=== PATIENT | male | born 1970 | race Caucasian/White ===

== ENCOUNTER 2018-04-01 16:31 | Emergency (ER) | payer SELFPAY ==
--- NOTE | 2018-04-01 17:35 | RAD REPORT ---
EXAM DESCRIPTION: RAD - Chest Single View - 04/01/2018 5:30 pm CLINICAL HISTORY: RIB PAIN - LEFT Chest pain. COMPARISON: CHEST SINGLE VIEW dated 11/04/2014 FINDINGS: Portable technique limits examination quality. The lungs are grossly clear. The heart is normal in size. No displaced fractures. IMPRESSION: No acute intrathoracic process suspected.
--- NOTE | 2018-04-01 17:36 | RAD REPORT ---
EXAM DESCRIPTION: RAD - Ribs Left - 04/01/2018 5:30 pm CLINICAL HISTORY: PAIN COMPARISON: Chest Single View dated 04/01/2018 FINDINGS: Mild fractures are suspected involving the lateral aspect of the left seventh and ninth ri bs. The bones are somewhat demineralized which degrades assessment.
--- NOTE | 2018-04-01 17:51 | EDPHYS ---
Physician Documentation [facility] Name: Akshat Sexton Age: 47 yrs Sex: Male : 1970 Arrival Date: 04/01/2018 Time: 16:33 Bed 10 Private MD: Mimi Sandoval K ED Physician Mahenrda Christopher HPI: 04/01 17:49 This 47 yrs old Male presents to ER via Ambulatory with complaints of Rib kb Pain. 17:49 The patient or guardian reports chest pain that is located primarily in the left kb lateral anterior chest. Onset: The symptoms/episode began/occurred 5 day(s) ago. The pain does not radiate. Associated signs and symptoms: The patient has no apparent associated signs or symptoms. The chest pain is described as sharp. Duration: The patient or guardian reports a single episode, that is still ongoing. Modifying factors: The symptoms are alleviated by nothing. the symptoms are aggravated by activity, cough, deep breath, movement, palpation of area. Severity of pain: At its worst the pain was moderate in the emergency department the pain is unchanged. The patient has not experienced similar symptoms in the past. The patient has not recently seen a physician. Pt was resting on his lower ribs reaching over something and it gave way. States he fell a couple of inches and hit his left lower ribs on what he was originally leaning on. Reports pain has been constant since then. Historical: - Allergies: 16:50 PENICILLINS; la1 - PMHx: 16:50 None; la1 - Immunization history:: Adult Immunizations up to date. - Social history:: Smoking status: Patient/guardian denies using tobacco. - Ebola Screening: : No symptoms or risks identified at this time. ROS: 17:48 Constitutional: Negative for fever, chills, and weight loss, Respiratory: Negative for kb shortness of breath, cough, wheezing, and pleuritic chest pain, Abdomen/GI: Negative for abdominal pain, nausea, vomiting, diarrhea, and constipation, Back: Negative for injury and pain, MS/Extremity: Negative for injury and deformity, Skin: Negative for injury, rash, and discoloration, Neuro: Negative for headache, weakness, numbness, tingling, and seizure. 17:48 Cardiovascular: Positive for chest pain, with cough, with movement, of the left lateral anterior chest. Exam: 17:48 Constitutional: This is a well developed, well nourished patient who is awake, alert, kb and in no acute distress. Head/Face: Normocephalic, atraumatic. Cardiovascular: Regular rate and rhythm with a normal S1 and S2. No gallops, murmurs, or rubs. Normal PMI, no JVD. No pulse deficits. Respiratory: Lungs have equal breath sounds bilaterally, clear to auscultation and percussion. No rales, rhonchi or wheezes noted. No increased work of breathing, no retractions or nasal flaring. Abdomen/GI: Soft, non-tender, with normal bowel sounds. No distension or tympany. No guarding or rebound. No evidence of tenderness throughout. Back: No spinal tenderness. No costovertebral tenderness. Full range of motion. Skin: Warm, dry with normal turgor. Normal color with no rashes, no lesions, and no evidence of cellulitis. MS/ Extremity: Pulses equal, no cyanosis. Neurovascular intact. Full, normal range of motion. Neuro: Awake and alert, GCS 15, oriented to person, place, time, and situation. Cranial nerves II-XII grossly intact. Motor strength 5/5 in all extremities. Sensory grossly intact. Cerebellar exam normal. Normal gait. 17:48 Chest/axilla: Inspection: normal, Palpation: tenderness, that is moderate, of the left lateral anterior chest, that totally reproduces the patient's complaints. Vital Signs: 16:50 BP 136 / 96; Pulse 86; Resp 16; Temp 97.2; Pulse Ox 98% on R/A; Weight 127.01 kg; la1 Height 6 ft. 0 in. (182.88 cm); 16:50 Body Mass Index 37.97 (127.01 kg, 182.88 cm) la1 MDM: 17:02 Patient medically screened. kb 17:21 Data reviewed: vital signs, nurses notes. Data interpreted: Pulse oximetry: on room air kb is 98 %. Interpretation: normal. 17:48 Counseling: I had a detailed discussion with the patient and/or guardian regarding: the kb historical points, exam findings, and any diagnostic results supporting the discharge/admit diagnosis, radiology results, the need for outpatient follow up, a family practitioner, to return to the emergency department if symptoms worsen or persist or if there are any questions or concerns that arise at home. 04/01 16:55 Order name: Chest Single View XRAY; Complete Time: 17:37 la1 04/01 16:55 Order name: Ribs Left XRAY; Complete Time: 17:37 la1 Administered Medications: 17:48 Drug: [place] 10 mg-325 mg 1 tabs Route: PO; iw 18:04 Follow up: Response: No adverse reaction; Pain is decreased la1 Disposition: 18:44 Co-signature as Attending Physician, Dominic Varela MD available for consultation at ps1 all times. Disposition: 04/01/18 17:51 Discharged to Home. Impression: Multiple fractures of ribs, left side. - Condition is Stable. - Discharge Instructions: Rib Fracture, [id number]. - Prescriptions for Tylenol- Codeine #3 300-30 mg Oral Tablet - take 1 tablet by ORAL route every 6 hours As needed; 15 tablet. - Medication Reconciliation Form, Thank You Letter, Antibiotic Education, Prescription Opioid Use, Work release form form. - Follow up: Emergency Department; When: As needed; Reason: Worsening of condition. Follow up: Private Physician; When: 2 - 3 days; Reason: Recheck today's complaints, Continuance of care, Re-evaluation by your physician. Signatures: Dispatcher [employer] Paulina Beltre, JAMAL CENSUS CLERK-Rachel Kraft, RN RN Balbir Hansen RN RN la Dominic Varela MD MD ps1 Corrections: (The following items were deleted from the chart) 18:04 17:51 04/01/2018 17:51 Discharged to Home. Impression: Multiple fractures of ribs, left la1 side. Condition is Stable. Forms are Medication Reconciliation Form, Thank You Letter, Antibiotic Education, Prescription Opioid Use. Follow up: Emergency Department; When: As needed; Reason: Worsening of condition. Follow up: Private Physician; When: 2 - 3 days; Reason: Recheck today's complaints, Continuance of care, Re-evaluation by your physician. kb
--- NOTE | 2018-04-01 17:51 | ER ---
Nurse's Notes [facility] Name: Akshat Sexton Age: 47 yrs Sex: Male : 1970 Arrival Date: 04/01/2018 Time: 16:33 Bed 10 Private MD: Mimi Sandoval K Diagnosis: Multiple fractures of ribs, left side Presentation: 04/01 16:49 Presenting complaint: Patient states: 2 days ago I was leaning over and fell against la1 something on my left side and I am having a lot of pain in my ribs on that side. Transition of care: patient was not received from another setting of care. Onset of symptoms was April 01, 2018. Risk Assessment: Do you want to hurt yourself or someone else? Patient reports no desire to harm self or others. Initial Sepsis Screen: Does the patient meet any 2 criteria? No. Patient's initial sepsis screen is negative. Does the patient have a suspected source of infection? No. Patient's initial sepsis screen is negative. Care prior to arrival: None. 16:49 Method Of Arrival: Ambulatory la1 16:49 Acuity: LEA 4 la1 Historical: - Allergies: 16:50 PENICILLINS; la1 - PMHx: 16:50 None; la1 - Immunization history:: Adult Immunizations up to date. - Social history:: Smoking status: Patient/guardian denies using tobacco. - Ebola Screening: : No symptoms or risks identified at this time. Screenin:52 Abuse screen: Denies threats or abuse. Nutritional screening: No deficits noted. la1 Tuberculosis screening: No symptoms or risk factors identified. Fall Risk None identified. Assessment: 16:51 General: Appears in no apparent distress. Behavior is calm, cooperative. Pain: la1 Complains of pain in left lateral anterior chest. Neuro: Level of Consciousness is awake, alert, obeys commands, Oriented to person, place, time, situation. Cardiovascular: Capillary refill < 3 seconds Patient's skin is warm and dry. Respiratory: Airway is patent Respiratory effort is even, unlabored, Respiratory pattern is regular, symmetrical, Breath sounds are clear bilaterally. GI: No signs and/or symptoms were reported involving the gastrointestinal system. : No signs and/or symptoms were reported regarding the genitourinary system. Vital Signs: 16:50 BP 136 / 96; Pulse 86; Resp 16; Temp 97.2; Pulse Ox 98% on R/A; Weight 127.01 kg; la1 Height 6 ft. 0 in. (182.88 cm); 16:50 Body Mass Index 37.97 (127.01 kg, 182.88 cm) la1 ED Course: 16:33 Patient arrived in ED. as 16:34 Mimi Sandoval MD is Private Physician. as 16:49 Triage completed. la1 16:50 Arm band placed on right wrist. la1 16:51 Balbir Hansen, RN is Primary Nurse. la1 16:52 Call light in reach. la1 16:52 No provider procedures requiring assistance completed. Patient did not have IV access la1 during this emergency room visit. 16:53 Paulina Rodríguez FNP-C [facility]. la1 16:54 Mahendra Christopher MD is Attending Physician. la1 17:30 Chest Single View XRAY In Process Unspecified. EDMS 17:31 Ribs Left XRAY In Process Unspecified. EDMS Administered Medications: 17:48 Drug: [place] 10 mg-325 mg 1 tabs Route: PO; iw 18:04 Follow up: Response: No adverse reaction; Pain is decreased la1 Outcome: 17:51 Discharge ordered by MD. kb 18:04 Discharged to home ambulatory. la1 18:04 Condition: stable 18:04 Discharge instructions given to patient, Instructed on discharge instructions, follow up and referral plans. medication usage, Demonstrated understanding of instructions, follow-up care, medications, Prescriptions given X 1. 18:04 Patient left the ED. la1 Signatures: Dispatcher [employer] EDMS Paulina Rodríguez FNP-C FNP-Ckb Martinez, Amelia as Rachel Madison RN RN iw Balbir Hansen RN RN la1
[2018-04-01] MEDS ORDERED: HYDROCODONE/APAP 10/325 TAB ONE (17:54)
[2018-04-01 18:08] VITALS: BP 136/96; TEMP 97.2; O2SAT 98
== END 2018-04-01 18:04 | disposition home or self-care (01) ==
LOC: ER 16:31
DX: S22.42XA Multiple fractures of ribs, left side, initial encounter for closed fracture (principal); W19.XXXA Unspecified fall, initial encounter; Y93.89 Activity, other specified; Y92.9 Unspecified place or not applicable; Z88.0 Allergy status to penicillin
CPT/HCPCS: 71045; 99283

== ENCOUNTER 2019-04-28 16:48 | Emergency (ER) | payer SELFPAY ==
[2019-04-28] MEDS ORDERED: HYDROCODONE/APAP 7.5/325 MG TAB ONE (18:00)
--- NOTE | 2019-04-28 18:46 | RAD REPORT ---
EXAM DESCRIPTION: CT - Thorax Wo Con - 04/28/2019 6:23 pm CLINICAL HISTORY: Persistent chest and back pain following a fall 4 days earlier COMPARISON: None. TECHNIQUE: Axial 5 mm thick images of the chest were obtained without IV contrast. All CT scans are performed using dose optimization technique as appropriate and may include automated exposure control or mA/KV adjustment according to patient size. FINDINGS: No pulmonary contusion or acute lung parenchymal process. No pleural thickening or pleural effusion. No pneumothorax. No abnormal mediastinal or hilar masses or lymphadenopathy seen. No gross aortic or pulmonary artery finding suspected. Assessment is limited in the absence of IV contrast. No pericardial thickening or effusion. No chest wall mass or abnormal axillary lymphadenopathy. No thoracic spine compression fractures seen. There are no displaced rib fractures present and no con vincing evidence for a nondisplaced rib fracture. Bilateral gynecomastia is present. No significant c ontusion or injury to the subcutaneous fatty tissues. IMPRESSION: Noncontrast CT chest images show no significant or suspicious finding.
--- NOTE | 2019-04-28 18:52 | RAD REPORT ---
EXAM DESCRIPTION: CT - Abdomen Wo Contrast - 04/28/2019 6:24 pm CLINICAL HISTORY: pain, fall COMPARISON: No comparisons TECHNIQUE: Axial [address] imaging of the abdomen was performed. No IV contrast was adm inistered. Oral contrast was administered. All CT scans are performed using dose optimization technique as appropriate and may include automated exposure control or mA/KV adjustment according to patient size. FINDINGS: No suspicious findings in the lung bases. Fatty infiltration of the liver is present without a focal liver lesion abnormality. Spleen and pancr eas are unremarkable. Gallbladder is contracted limiting assessment. No biliary tree dilatation. No hydronephrosis or suspicious renal mass. Isodense masses and pyelonephritis are not excluded on a non IV contrast study. No adrenal abnormality. No dilated bowel loops or bowel wall thickening. No free air, free fluid or inflammatory stranding. N o hernia, mass or bulky lymphadenopathy. Patient has a large amount of stool filling but not grossly dilating the right-side colon and transverse colon. No compression fractures of the lumbar spine. L5-S1 disc space narrowing is present. There is some s ubtle cortical irregularity of the L1 right transverse process. No adjacent hematoma or edema. Subtle cortical buckling seen in the right ninth rib costochondral junction. This is the lateral aspect of the upper abdomen. Overlying musculature appear slightly thickened or edematous. Correlation is neede d to determine if the patient had trauma to the lateral upper right abdomen. Exam sensitivity is decreased when no IV contrast is administered. IMPRESSION: Fatty infiltration of the liver. No injury to the solid abdominal visceral or bowel. No fluid, stranding or other peritoneal or retroperitoneal acute process. Subtle buckling of the right ninth rib at the costochondral junction. This is the lateral aspect of t he upper abdomen and there is some thickening or edema in the overlying musculature. Correlation is n eeded with pain symptoms and history of trauma in this region. The underlying liver is without acute finding. Subtle cortical irregularity of the L1 right transverse process. Nondisplaced fracture is possible if the patient has localizing symptoms.
--- NOTE | 2019-04-28 19:07 | ER ---
Nurse's Notes [facility] Name: Akshat Sexton Age: 48 yrs Sex: Male : 1970 Arrival Date: 04/28/2019 Time: 16:52 Bed 5 Private MD: Avinash Bright E Diagnosis: Fracture of one rib, right side;Age indeterminate stable L1 fracture Presentation: 04/28 17:02 Presenting complaint: Right mid back pain after mechanical fall from standing 4 days hb ago. Pt was walking dog with leash around wrist, dog took off and jerked him forward, landed prone, now c/o right mid back pain /. Transition of care: patient was not received from another setting of care. Onset of symptoms was April 24, 2019. Risk Assessment: Do you want to hurt yourself or someone else? Patient reports no desire to harm self or others. Initial Sepsis Screen: Does the patient meet any 2 criteria? No. Patient's initial sepsis screen is negative. Does the patient have a suspected source of infection? No. Patient's initial sepsis screen is negative. Care prior to arrival: None. 17:02 Method Of Arrival: Ambulatory hb 17:02 Acuity: LEA 4 hb Historical: - Allergies: 17:06 PENICILLINS; hb - Home Meds: 17:06 None [Active]; hb - PMHx: 17:06 None; hb - PSHx: 17:06 None; hb - Immunization history:: Adult Immunizations up to date. - Social history:: Smoking status: Patient/guardian denies using tobacco. - Ebola Screening: : No symptoms or risks identified at this time. Screenin:25 Abuse screen: Denies threats or abuse. Denies injuries from another. Nutritional sg screening: No deficits noted. Tuberculosis screening: No symptoms or risk factors identified. Never had TB. Fall Risk None identified. Assessment: 17:20 General: Appears in no apparent distress. well groomed, well developed, well nourished, sg Behavior is calm, cooperative, appropriate for age. Pain: Complains of pain in right subscapular area and abdomen Quality of pain is described as aching, tender. Neuro: Level of Consciousness is awake, alert, obeys commands, Oriented to person, place, time, Moves all extremities. Speech is normal, Facial symmetry appears normal. Cardiovascular: Capillary refill is brisk in bilateral fingers Patient's skin is warm and dry. Chest pain is denied. Respiratory: Airway is patent Respiratory effort is even, unlabored, Respiratory pattern is regular, symmetrical. GI: Bowel sounds present X 4 quads. Abd is soft and non tender X 4 quads. : No signs and/or symptoms were reported regarding the genitourinary system. EENT: No signs and/or symptoms were reported regarding the EENT system. Derm: Skin is pink, warm \T\ dry. Musculoskeletal: Circulation, motion, and sensation intact. Range of motion: intact in all extremities. 18:20 Reassessment: Patient appears in no apparent distress at this time. Patient and/or sg family updated on plan of care and expected duration. Pain level reassessed. Patient is alert, oriented x 3, equal unlabored respirations, skin warm/dry/pink. awaiting new orders at this time, will continue to monitor. 19:10 General: Appears in no apparent distress. comfortable, Behavior is calm, cooperative, rr5 appropriate for age. Pain: Complains of pain in back and abdomen Pain does not radiate. Pain currently is 0 out of 10 on a pain scale. Quality of pain is described as aching, tender, Pain began gradually, Is intermittent. Neuro: Level of Consciousness is awake, alert, obeys commands, Oriented to person, place, time, situation. Cardiovascular: Capillary refill < 3 seconds Patient's skin is warm and dry. Respiratory: Airway is patent Respiratory effort is even, unlabored, Respiratory pattern is regular, symmetrical. 19:10 GI: Reports upper abdominal pain, right side. rr5 19:10 Derm: Skin is intact, Skin temperature is warm. Musculoskeletal: Circulation, motion, rr5 and sensation intact. 19:20 Reassessment: RT came and educated the the patient about the use of incentive rr5 spirometry. 19:25 Reassessment: Patient appears in no apparent distress at this time. Patient is alert, rr5 oriented x 3, equal unlabored respirations, skin warm/dry/pink. discharge instruction given and explained without complaints made. verbalized understanding. Vital Signs: 17:06 BP 149 / 79; Pulse 83; Resp 16; Temp 98.4; Pulse Ox 100% on R/A; Weight 127.01 kg; hb Height 5 ft. 11 in. (180.34 cm); Pain 4/10; 19:10 BP 144 / 95; Pulse 80; Resp 19; Temp 98.5; Pulse Ox 99% ; rr5 17:06 Body Mass Index 39.05 (127.01 kg, 180.34 cm) ED Course: 16:52 Patient arrived in ED. mr 16:52 Avinash Bright MD is Private Physician. mr 17:05 Triage completed. hb 17:06 Arm band placed on. hb 17:20 Patient has correct armband on for positive identification. Bed in low position. Call sg light in reach. Side rails up X2. Pulse ox on. NIBP on. Warm blanket given. Head of bed elevated. 17:25 No provider procedures requiring assistance completed. sg 17:37 Dominic Varela MD is Attending Physician. ps1 18:02 Matthew Webb, RN is Primary Nurse. sg 18:[address] [facility] 18:24 CT Chest Wo Con In Process Unspecified. EDMS 18:24 CT completed. Patient tolerated procedure well. Patient moved back from CT. in 18:24 Abdomen Wo Contrast In Process Unspecified. EDMS 19:05 Avinash Bright MD is Referral Physician. ps1 19:29 Patient did not have IV access during this emergency room visit. rr5 Administered Medications: 18:00 Drug: [place] (7.5 mg-325 mg) 1 tabs Route: PO; sg 19:30 Follow up: Response: No adverse reaction rr5 19:30 Follow up: Response: RASS: Alert and Calm (0) rr5 Outcome: 19:07 Discharge ordered by MD. ps1 19:29 Discharged to home ambulatory, with family. rr5 19:29 Condition: stable 19:29 Discharge instructions given to patient, Instructed on discharge instructions, follow up and referral plans. medication usage, Demonstrated understanding of instructions, follow-up care, medications, incentive spirometry Prescriptions given X 2. 19:31 Patient left the ED. rr5 Signatures: Dispatcher [employer] EDMS Matthew Webb, QUINCY MATHEW Tasha Pierce Olinda Guerrero RN RN Joni Bhat Phillip, MD MD [facility] Jazmyn Stone kw1 Akira Cardenas RN RN rr5 Corrections: (The following items were deleted from the chart) 19:29 19:10 GI: Reports lower abdominal pain, upper abdominal pain, rr5 rr5
--- NOTE | 2019-04-28 19:08 | EDPHYS ---
Physician Documentation [facility] Name: Akshat Sexton Age: 48 yrs Sex: Male : 1970 Arrival Date: 04/28/2019 Time: 16:52 Bed 5 Private MD: Avinash Bright E ED Physician Dominic Varela HPI: 04/28 18:58 This 48 yrs old Male presents to ER via Ambulatory with complaints of ps1 Abdominal Pain, Back Pain. 18:58 patient reportedly fell a couple of days ago while walking dog and has right rib pain. ps1 NO LOC. Reports that he may have fallen and broke ribs previously. Has pain at 9 th rib on right. Pain worse with deep inspiration. . Historical: - Allergies: 17:06 PENICILLINS; hb - Home Meds: 17:06 None [Active]; hb - PMHx: 17:06 None; hb - PSHx: 17:06 None; hb - Immunization history:: Adult Immunizations up to date. - Social history:: Smoking status: Patient/guardian denies using tobacco. - Ebola Screening: : No symptoms or risks identified at this time. ROS: 18:58 Constitutional: Negative for fever, chills, and weight loss, Eyes: Negative for injury, ps1 pain, redness, and discharge, Cardiovascular: Negative for chest pain, palpitations, and edema, Abdomen/GI: Negative for abdominal pain, nausea, vomiting, diarrhea, and constipation, Back: Negative for injury and pain, MS/Extremity: Negative for injury and deformity, Skin: Negative for injury, rash, and discoloration, Neuro: Negative for headache, weakness, numbness, tingling, and seizure. 18:58 Respiratory: Positive for right rib pain and pleurisy. Exam: 18:58 Constitutional: This is a well developed, well nourished patient who is awake, alert, ps1 and in no acute distress. Head/Face: Normocephalic, atraumatic. Cardiovascular: Regular rate and rhythm. No gallops, murmurs, or rubs. Normal PMI, no JVD. No pulse deficits. Respiratory: Lungs have equal breath sounds bilaterally, clear to auscultation and percussion. No rales, rhonchi or wheezes noted. No increased work of breathing, no retractions or nasal flaring. Abdomen/GI: Soft, non-tender, with normal bowel sounds. No distension or tympany. No guarding or rebound. No evidence of tenderness throughout. Skin: Warm, dry with normal turgor. Normal color with no rashes, no lesions, and no evidence of cellulitis. MS/ Extremity: Pulses equal, no cyanosis. Neurovascular intact. Full, normal range of motion. Neuro: Awake and alert, GCS 15, oriented to person, place, time, and situation. Cranial nerves II-XII grossly intact. Sensory grossly intact. 18:58 Chest/axilla: Inspection: normal, Palpation: tenderness, that is moderate, of the right lateral anterior chest, that totally reproduces the patient's complaints. Vital Signs: 17:06 BP 149 / 79; Pulse 83; Resp 16; Temp 98.4; Pulse Ox 100% on R/A; Weight 127.01 kg; hb Height 5 ft. 11 in. (180.34 cm); Pain 4/10; 19:10 BP 144 / 95; Pulse 80; Resp 19; Temp 98.5; Pulse Ox 99% ; rr5 17:06 Body Mass Index 39.05 (127.01 kg, 180.34 cm) hb MDM: 17:52 Patient medically screened. ps1 18:58 Data reviewed: vital signs, nurses notes, radiologic studies, and as a result, I will ps1 discharge patient. 04/28 17:53 Order name: CT Chest Wo Con; Complete Time: 18:49 ps1 04/28 18:19 Order name: Abdomen Wo Contrast; Complete Time: 18:56 EDMS 04/28 18:58 Order name: INCENTIVE SPIROMETRY ps1 Administered Medications: 18:00 Drug: Coward (7.5 mg-325 mg) 1 tabs Route: PO; sg 19:30 Follow up: Response: No adverse reaction rr5 19:30 Follow up: Response: RASS: Alert and Calm (0) rr5 Disposition: 04/28/19 19:07 Discharged to Home. Impression: Fracture of one rib, right side, Age indeterminate stable L1 fracture. - Condition is Stable. - Discharge Instructions: Rib Fracture, Vertebral Fracture, [id number]. - Prescriptions for Tylenol- Codeine #3 300-30 mg Oral Tablet - take 2 tablet by ORAL route every 6 hours As needed; 30 tablet. Zofran 4 mg Oral Tablet - take 1 tablet by ORAL route every 12 hours As needed; 20 tablet. - Medication Reconciliation Form, Thank You Letter, Antibiotic Education, Prescription Opioid Use form. - Follow up: Avinash Bright MD; When: As needed; Reason: Further diagnostic work-up, Recheck today's complaints, Continuance of care, Re-evaluation by your physician. Follow up: Emergency Department; When: As needed; Reason: Trouble breathing, Worsening of condition. - Problem is new. - Symptoms are unchanged. Signatures: Dispatcher [employer] EDMS Matthew Webb RN RN sg Olinda Guerrero RN RN Dominic Varela MD MD ps1 Akira Cardenas RN RN rr5 Corrections: (The following items were deleted from the chart) 19:31 19:07 04/28/2019 19:07 Discharged to Home. Impression: Fracture of one rib, right side; rr5 Age indeterminate stable L1 fracture. Condition is Stable. Forms are Medication Reconciliation Form, Thank You Letter, Antibiotic Education, Prescription Opioid Use. Follow up: Avinash Bright; When: As needed; Reason: Further diagnostic work-up, Recheck today's complaints, Continuance of care, Re-evaluation by your physician. Follow up: Emergency Department; When: As needed; Reason: Trouble breathing, Worsening of condition. Problem is new. Symptoms are unchanged. ps1
[2019-04-28 19:37] VITALS: BP 144/95; TEMP 98.5; O2SAT 99
== END 2019-04-28 19:31 | disposition home or self-care (01) ==
LOC: ER 16:48
DX: S22.31XA Fracture of one rib, right side, initial encounter for closed fracture (principal); S32.018A Other fracture of first lumbar vertebra, initial encounter for closed fracture; W18.39XA Other fall on same level, initial encounter; Y93.89 Activity, other specified; Y92.89 Other specified places as the place of occurrence of the external cause; Z88.0 Allergy status to penicillin
CPT/HCPCS: 71250; 74150; 99284

== ENCOUNTER 2019-05-05 20:15 | Emergency (ER) | payer SELFPAY ==
[2019-05-05] MEDS ORDERED: LACTULOSE 20 GM/30 ML UCUP ONE (21:01)
[2019-05-05] MEDS ORDERED: BISACODYL 10 MG RECTAL SUPP ONE (21:01)
[2019-05-05] MEDS ORDERED: NA CHLORIDE 0.9% 1,000 ML ONE (21:01)
[2019-05-05 21:14] LABS: Absolute Lymphocytes (CBC) 1.9 K/uL (0.7-4.9); Basophils % 0.6 % (0-1.3); Hematocrit 42.3 % (39.6-49.0); Lymphocytes % 28.8 % (15.3-44.8); MPV 7.9 fL (7.6-11.3); RBC Red Blood Cell Count 4.53 M/uL (4.33-5.43)
[2019-05-05 21:46] LABS: Albumin 3.9 g/dL (3.4-5.0); Bilirubin Direct 0.1 mg/dL (0-0.2); Bilirubin Total 0.4 mg/dL (0.2-1.0); Protein, Total 7.7 g/dL (6.4-8.2)
[2019-05-06] MEDS ORDERED: MAGNESIUM CITRATE 300 ML BOT ONE (01:15)
--- NOTE | 2019-05-06 01:43 | EDPHYS ---
Physician Documentation [facility] Name: Akshat Sexton Age: 48 yrs Sex: Male : 1970 Arrival Date: 05/05/2019 Time: 20:17 Bed 17 Private MD: ED Physician Aaron Casiano HPI: 05/05 21:06 This 48 yrs old Male presents to ER via Ambulatory with complaints of gabbi Constipation. 21:06 The patient presents with abdominal pain abdominal distention in the upper abdomen, in gabbi the lower abdomen. Onset: The symptoms/episode began/occurred 5 day(s) ago. The symptoms do not radiate. Associated signs and symptoms: none. The symptoms are described as crampy. Modifying factors: The symptoms are alleviated by nothing, the symptoms are aggravated by nothing. Severity of pain: At its worst the pain was mild in the emergency department the pain is unchanged. The patient has experienced similar episodes in the past, a few times. Historical: - Allergies: 20:32 PENICILLINS; lp1 - Home Meds: 20:32 Methadone Oral [Active]; lp1 - PMHx: 20:32 None; lp1 - PSHx: 20:32 Hernia repair; lp1 - Immunization history:: Adult Immunizations up to date. - Social history:: Smoking status: Patient/guardian denies using tobacco. - Ebola Screening: : No symptoms or risks identified at this time. - Family history:: not pertinent. ROS: 21:06 Constitutional: Negative for fever, chills, and weight loss, Eyes: Negative for injury, gabbi pain, redness, and discharge, ENT: Negative for injury, pain, and discharge, Neck: Negative for injury, pain, and swelling, Cardiovascular: Negative for chest pain, palpitations, and edema, Respiratory: Negative for shortness of breath, cough, wheezing, and pleuritic chest pain, Back: Negative for injury and pain, : Negative for injury, bleeding, discharge, and swelling, MS/Extremity: Negative for injury and deformity, Skin: Negative for injury, rash, and discoloration, Neuro: Negative for headache, weakness, numbness, tingling, and seizure, Psych: Negative for depression, anxiety, suicide ideation, homicidal ideation, and hallucinations, Allergy/Immunology: Negative for hives, rash, and allergies, Endocrine: Negative for neck swelling, polydipsia, polyuria, polyphagia, and marked weight changes, Hematologic/Lymphatic: Negative for swollen nodes, abnormal bleeding, and unusual bruising. 21:06 Abdomen/GI: Positive for abdominal pain, constipation, abdominal cramps. Exam: 21:06 Constitutional: This is a well developed, well nourished patient who is awake, alert, gabbi and in no acute distress. Head/Face: Normocephalic, atraumatic. Eyes: Pupils equal round and reactive to light, extra-ocular motions intact. Lids and lashes normal. Conjunctiva and sclera are non-icteric and not injected. Cornea within normal limits. Periorbital areas with no swelling, redness, or edema. ENT: Nares patent. No nasal discharge, no septal abnormalities noted. Tympanic membranes are normal and external auditory canals are clear. Oropharynx with no redness, swelling, or masses, exudates, or evidence of obstruction, uvula midline. Mucous membranes moist. Neck: Trachea midline, no thyromegaly or masses palpated, and no cervical lymphadenopathy. Supple, full range of motion without nuchal rigidity, or vertebral point tenderness. No Meningismus. Chest/axilla: Normal chest wall appearance and motion. Nontender with no deformity. No lesions are appreciated. Cardiovascular: Regular rate and rhythm with a normal S1 and S2. No gallops, murmurs, or rubs. Normal PMI, no JVD. No pulse deficits. Respiratory: Lungs have equal breath sounds bilaterally, clear to auscultation and percussion. No rales, rhonchi or wheezes noted. No increased work of breathing, no retractions or nasal flaring. Back: No spinal tenderness. No costovertebral tenderness. Full range of motion. Male : Normal genitalia with no discharge or lesions. Skin: Warm, dry with normal turgor. Normal color with no rashes, no lesions, and no evidence of cellulitis. MS/ Extremity: Pulses equal, no cyanosis. Neurovascular intact. Full, normal range of motion. Neuro: Awake and alert, GCS 15, oriented to person, place, time, and situation. Cranial nerves II-XII grossly intact. Motor strength 5/5 in all extremities. Sensory grossly intact. Cerebellar exam normal. Normal gait. Psych: Awake, alert, with orientation to person, place and time. Behavior, mood, and affect are within normal limits. 21:06 Abdomen/GI: Inspection: abdomen appears normal, Bowel sounds: normal, Palpation: mild abdominal tenderness, Liver: is firm, Hernia: not appreciated. Vital Signs: 20:30 BP 141 / 88; Pulse 79; Resp 18; Temp 97.6(O); Pulse Ox 97% on R/A; Weight 127.01 kg; lp1 Height 5 ft. 11 in. (180.34 cm); Pain 0/10; 21:24 BP 147 / 84; Pulse 78; Resp 18; Pulse Ox 99% on R/A; wh 23:30 BP 147 / 89; Pulse 75; Resp 18; Pulse Ox 96% ; 05/06 01:00 BP 159 / 75; Pulse 72; Resp 18; Pulse Ox 98% ; 01:48 BP 128 / 65; Pulse 68; Resp 18; Pulse Ox 93% on R/A; 05/05 20:30 Body Mass Index 39.05 (127.01 kg, 180.34 cm) lp1 MDM: 05/05 20:35 Patient medically screened. [facility] 21:09 Data reviewed: vital signs, nurses notes, lab test result(s), radiologic studies, CT gabbi scan. 05/06 01:40 ED course: Patient had good bowel movement in ER. Feeling much better. pkl 01:42 Patient medically screened. pkl 05/05 20:37 Order name: Basic Metabolic Panel; Complete Time: 22:03 [facility] 05/05 20:37 Order name: CBC with Diff; Complete Time: 21:39 [facility] 05/05 20:37 Order name: Creatinine for Radiology; Complete Time: 22:03 [facility] 05/05 20:37 Order name: Hepatic Function; Complete Time: 22:03 [facility] 05/05 20:37 Order name: Lipase; Complete Time: 22:03 [facility] 05/05 20:37 Order name: IV Saline Lock; Complete Time: 21:02 [facility] 05/05 20:37 Order name: Labs collected and sent; Complete Time: 21:02 [facility] 05/05 20:37 Order name: CT Abd/Pelvis - PO and IV Contrast [facility] 05/05 22:04 Order name: PO challenge; Complete Time: 22:09 snw Administered Medications: 05/05 21:10 Drug: Lactulose 30 grams Volume: 45 ml; Route: PO; 05/06 01:43 Follow up: Response: No adverse reaction 05/05 21:10 Drug: Dulcolax Suppository 10 mg Route: MD; 05/06 01:43 Follow up: Response: No adverse reaction 05/05 21:11 Drug: NS 0.9% 1000 ml Route: IV; Rate: 1 bolus; Site: right antecubital; 05/06 01:42 Follow up: Response: No adverse reaction; IV Status: Completed infusion 01:18 Drug: Magnesium Citrate Liquid 300 ml Route: PO; 01:43 Follow up: Response: No adverse reaction; Marked relief of symptoms Disposition: 05/06/19 01:42 Discharged to Home. Impression: Constipation, Abdominal tenderness, Obesity, unspecified. - Condition is Stable. - Discharge Instructions: Abdominal Pain, Adult, Constipation, Adult, Obesity, Adult, Constipation, Adult, [id number], Abdominal Pain, Adult, [id number]. - Prescriptions for Lactulose 10 gram/15 mL Oral Solution - take 30 milliliter by ORAL route once daily; 300 milliliter. Dulcolax 10 mg Rectal Suppository - insert 1 suppository by RECTAL route every 12 hours As needed; 10 suppository. - Medication Reconciliation Form, Thank You Letter, Antibiotic Education, Prescription Opioid Use form. - Follow up: Private Physician; When: 2 - 3 days; Reason: Recheck today's complaints, Continuance of care, Re-evaluation by your physician. Follow up: Samira Mirza; When: 2 - 3 days; Reason: Recheck today's complaints, Re-evaluation by your physician. - Problem is new. - Symptoms have improved. Signatures: Dispatcher [employer] EDDion Aguirre MD MD cha Lam, Pin, MD MD pkl Therrien, Shelly, EARLY CHILDHOOD EDUCATION INSTRUCTOR-C EARLY CHILDHOOD EDUCATION INSTRUCTOR-Csnw Bernadine Encarnacion RN RN lp1 Sonali Cool Corrections: (The following items were deleted from the chart) 01:50 01:42 05/06/2019 01:42 Discharged to Home. Impression: Constipation; Abdominal wh tenderness; Obesity, unspecified. Condition is Stable. Discharge Instructions: Abdominal Pain, Adult, Constipation, Adult, Obesity, Adult, Constipation, Adult, [id number]-co-[id number], Abdominal Pain, Adult, [id number]. Prescriptions for Lactulose 10 gram/15 mL Oral Solution - take 30 milliliter by ORAL route once daily; 300 milliliter, Dulcolax 10 mg Rectal Suppository - insert 1 suppository by RECTAL route every 12 hours As needed; 10 suppository. and Forms are Medication Reconciliation Form, Thank You Letter, Antibiotic Education, Prescription Opioid Use. Follow up: Private Physician; When: 2 - 3 days; Reason: Recheck today's complaints, Continuance of care, Re-evaluation by your physician. Follow up: Samira Mirza; When: 2 - 3 days; Reason: Recheck today's complaints, Re-evaluation by your physician. Problem is new. Symptoms have improved. pkl
--- NOTE | 2019-05-06 01:43 | ER ---
Nurse's Notes [facility] Name: Akshat Sexton Age: 48 yrs Sex: Male : 1970 Arrival Date: 05/05/2019 Time: 20:17 Bed 17 Private MD: Diagnosis: Constipation;Abdominal tenderness;Obesity, unspecified Presentation: 05/05 20:26 Presenting complaint: Patient states: Constipation for 2 weeks; Attempted using lp1 Glycerin suppository, Miralax, prune juice with only small BM; Denies vomiting. Transition of care: patient was not received from another setting of care. Onset of symptoms was May 05, 2019. Risk Assessment: Do you want to hurt yourself or someone else? Patient reports no desire to harm self or others. Initial Sepsis Screen: Does the patient meet any 2 criteria? No. Patient's initial sepsis screen is negative. Does the patient have a suspected source of infection? No. Patient's initial sepsis screen is negative. Care prior to arrival: None. 20:26 Method Of Arrival: Ambulatory lp1 20:26 Acuity: LEA 3 lp1 Historical: - Allergies: 20:32 PENICILLINS; lp1 - Home Meds: 20:32 Methadone Oral [Active]; lp1 - PMHx: 20:32 None; lp1 - PSHx: 20:32 Hernia repair; lp1 - Immunization history:: Adult Immunizations up to date. - Social history:: Smoking status: Patient/guardian denies using tobacco. - Ebola Screening: : No symptoms or risks identified at this time. - Family history:: not pertinent. Screenin:32 Abuse screen: Denies threats or abuse. Denies injuries from another. Nutritional lp1 screening: No deficits noted. Tuberculosis screening: No symptoms or risk factors identified. Fall Risk None identified. Assessment: 21:00 General: Appears in no apparent distress. Behavior is calm, cooperative, appropriate wh for age. Pain: Denies pain. Neuro: Level of Consciousness is awake, alert, obeys commands, Oriented to person, place, time, situation, Appropriate for age. Cardiovascular: Heart tones S1 S2. Respiratory: Airway is patent Respiratory effort is even, unlabored, Respiratory pattern is regular, symmetrical, Breath sounds are clear bilaterally. GI: Abdomen is round non-distended, Bowel sounds present X 4 quads. Abd is soft and non tender X 4 quads. : No signs and/or symptoms were reported regarding the genitourinary system. EENT: No signs and/or symptoms were reported regarding the EENT system. Derm: Skin is intact, is healthy with good turgor, Skin is pink, warm \T\ dry. normal. Musculoskeletal: Circulation, motion, and sensation intact. 21:24 Reassessment: Patient appears in no apparent distress at this time. No changes from previously documented assessment. Patient and/or family updated on plan of care and expected duration. Pain level reassessed. Patient is alert, oriented x 3, equal unlabored respirations, skin warm/dry/pink. CT notified Pt done with oral contrast. 22:30 Reassessment: Patient appears in no apparent distress at this time. No changes from previously documented assessment. Patient and/or family updated on plan of care and expected duration. Pain level reassessed. Patient is alert, oriented x 3, equal unlabored respirations, skin warm/dry/pink. Patient denies pain at this time. 23:51 Reassessment: Patient appears in no apparent distress at this time. No changes from previously documented assessment. Patient and/or family updated on plan of care and expected duration. Pain level reassessed. Patient is alert, oriented x 3, equal unlabored respirations, skin warm/dry/pink. Still no BM notified Provider, awaiting imaging results Patient denies pain at this time. 05/06 01:00 Reassessment: Patient appears in no apparent distress at this time. No changes from previously documented assessment. Patient and/or family updated on plan of care and expected duration. Pain level reassessed. Patient is alert, oriented x 3, equal unlabored respirations, skin warm/dry/pink. 01:49 Reassessment: Patient appears in no apparent distress at this time. No changes from previously documented assessment. Patient and/or family updated on plan of care and expected duration. Pain level reassessed. Patient is alert, oriented x 3, equal unlabored respirations, skin warm/dry/pink. PT had 1 big bowel movement Patient states feeling better. Patient states symptoms have improved. Vital Signs: 05/05 20:30 BP 141 / 88; Pulse 79; Resp 18; Temp 97.6(O); Pulse Ox 97% on R/A; Weight 127.01 kg; lp1 Height 5 ft. 11 in. (180.34 cm); Pain 0/10; 21:24 BP 147 / 84; Pulse 78; Resp 18; Pulse Ox 99% on R/A; 23:30 BP 147 / 89; Pulse 75; Resp 18; Pulse Ox 96% ; 05/06 01:00 BP 159 / 75; Pulse 72; Resp 18; Pulse Ox 98% ; 01:48 BP 128 / 65; Pulse 68; Resp 18; Pulse Ox 93% on R/A; 05/05 20:30 Body Mass Index 39.05 (127.01 kg, 180.34 cm) lp1 ED Course: 05/05 20:17 Patient arrived in ED. cl3 20:30 Triage completed. lp1 20:30 Arm band placed on left wrist. lp1 20:35 Dion Moreno MD is Attending Physician. [facility] 20:36 Sonali Cool is Primary Nurse. 21:00 Patient has correct armband on for positive identification. Bed in low position. Call light in reach. Side rails up X 1. Pulse ox on. NIBP on. 21:12 Inserted saline lock:. mw1 21:19 Inserted saline lock: 20 gauge in right antecubital area, using aseptic technique. mw1 22:[address] via wheelchair. nj 23:14 CT Abd/Pelvis - PO and IV Contrast In Process Unspecified. EDMS 05/06 01:42 Attending Physician role handed off by Dion Moreno MD pkl 01:42 Aaron Casiano MD is Attending Physician. pkl 01:42 Samira Mirza MD is Referral Physician. pkl 01:49 No provider procedures requiring assistance completed. IV discontinued, intact, bleeding controlled, No redness/swelling at site. Administered Medications: 05/05 21:10 Drug: Lactulose 30 grams Volume: 45 ml; Route: PO; 05/06 01:43 Follow up: Response: No adverse reaction 05/05 21:10 Drug: Dulcolax Suppository 10 mg Route: [place]; 05/06 01:43 Follow up: Response: No adverse reaction 05/05 21:11 Drug: NS 0.9% 1000 ml Route: IV; Rate: 1 bolus; Site: right antecubital; 05/06 01:42 Follow up: Response: No adverse reaction; IV Status: Completed infusion 01:18 Drug: Magnesium Citrate Liquid 300 ml Route: PO; 01:43 Follow up: Response: No adverse reaction; Marked relief of symptoms Outcome: 01:42 Discharge ordered by . [place] 01:50 Discharged to home ambulatory, with family. 01:50 Condition: stable 01:50 Discharge instructions given to patient, family, Instructed on discharge instructions, follow up and referral plans. medication usage, POC Constipation Demonstrated understanding of instructions, follow-up care, medications, POC Prescriptions given X 2. 01:50 Patient left the ED. Signatures: Dispatcher [employer] EDMS Dion Moreno MD MD cha Lam, Pin, MD MD pkl Pena, Laura RN RN lp1 Joni Bhat Michael mw1 Sonali Cool Charde cl3
[2019-05-06 02:48] VITALS: TEMP 97.6
[2019-05-06 02:55] VITALS: BP 128/65; O2SAT 93
--- NOTE | 2019-05-06 10:10 | RAD REPORT ---
EXAM DESCRIPTION: CT - Abdomen Pelvis W Contrast - 05/05/2019 11:13 pm CLINICAL HISTORY: The patient is 48 years old and is Male; Abd pain; Constipation TECHNIQUE: Axial computed tomography images of the abdomen and pelvis with intravenous contrast. S agittal and coronal reformatted images were created and reviewed. This CT exam was performed using one or more of the following dose reduction techniques: automated exposure control, adjustment of t he mA and/or kV according to patient size, and/or use of iterative reconstruction technique. DLP: 1884 mGy*cm COMPARISON: CT abdomen without contrast dated April 28, 2019. FINDINGS: LUNG BASES: Lung bases are clear. HEART: The visualized heart is normal. ABDOMEN: LIVER: Diffuse hepatic steatosis. GALLBLADDER AND BILE DUCTS: Unremarkable. No calcified stones. No ductal dilation. PANCREAS: Unremarkable. No mass. No ductal dilation. SPLEEN: Unremarkable. No splenomegaly. ADRENALS: Unremarkable. No mass. KIDNEYS AND URETERS: Unremarkable. No solid mass. No hydronephrosis. STOMACH AND BOWEL: Contrast is seen in the stomach. Questionable postsurgical changes of the gastr oduodenal junction. No obstruction. No mucosal thickening. PELVIS: APPENDIX: No findings to suggest acute appendicitis. BLADDER: Unremarkable. No mass. REPRODUCTIVE: Unremarkable as visualized. ABDOMEN and PELVIS: INTRAPERITONEAL SPACE: Unremarkable. No free air. No significant fluid collection. BONES/JOINTS: No acute fracture. No dislocation. SOFT TISSUES: Small fat-containing umbilical hernia. VASCULATURE: Unremarkable. No abdominal aortic aneurysm. LYMPH NODES: Unremarkable. No enlarged lymph nodes. IMPRESSION: 1. No acute abdominal or pelvic abnormality. 2. Diffuse hepatic steatosis. Electronically signed by: Eze Briggs DO 05/05/2019 11:33 PM STUDENT SUPPORT COUNSELOR Due to temporary technical issues with the PACS/Fluency reporting system, reports are being signed by the in house radiologist as a courtesy to ensure prompt reporting. The interpreting radiologist is f ully responsible for the content of the report.
== END 2019-05-06 01:50 | disposition home or self-care (01) ==
LOC: ER 20:15
DX: K59.00 Constipation, unspecified (principal); E66.9 Obesity, unspecified; R10.819 Abdominal tenderness, unspecified site; Z88.0 Allergy status to penicillin
CPT/HCPCS: 36415; 74177; 80048; 80076; 83690; 85025; 96360; 96361; 99284; J7030; Q9967

== ENCOUNTER 2022-06-05 17:31 | Emergency (ER) | payer SELFPAY ==
--- NOTE | 2022-06-05 19:05 | RAD REPORT ---
EXAM DESCRIPTION: US - Extremity Venous Uni Ltd - 06/05/2022 6:56 pm CLINICAL HISTORY: Pain COMPARISON: None. TECHNIQUE: Real-time sonographic evaluation of the left lower extremity deep venous system was perfo rmed. FINDINGS: Normal compressibility, flow augmentation, phasic flow and spontaneous flow is identified in the left lower extremity deep venous system. No intraluminal filling defects seen. IMPRESSION: No DVT in the left lower extremity.
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
--- NOTE | 2022-06-05 19:09 | RAD REPORT ---
EXAM DESCRIPTION: US - Lower Extremity Artery Uni Ltd - 06/05/2022 6:56 pm CLINICAL HISTORY: Pain COMPARISON: None FINDINGS: The common femoral and superficial femoral demonstrate triphasic waveforms The popliteal, posterior tibial and dorsalis pedis arteries demonstrate biphasic waveforms. IMPRESSION: Triphasic and biphasic waveforms in the left lower extremity. No hemodynamically signifi cant stenosis.
[2022-06-05] MEDS ORDERED: MORPHINE 4 MG/ML SYR ONE (20:19)
[2022-06-05] MEDS ORDERED: BUPIVACAINE 0.5% PF 10 ML VIAL ONE (20:19)
[2022-06-05] MEDS ORDERED: LIDOCAINE 1% MPF 5 ML VIAL ONE (20:19)
--- NOTE | 2022-06-05 21:09 | ER ---
Nurse's Notes [facility] Name: Akshat Sexton Age: 51 yrs Sex: Male : 1970 Arrival Date: 06/05/2022 Time: 17:32 Bed 8 Private MD: Mimi Sandoval K Diagnosis: Laceration without foreign body of foot-left Presentation: 06/05 18:09 Chief complaint: Patient states: L inner foot laceration <4 cm laceration from axe ll1 through his shoe. Bleeding controlled. Coronavirus screen: Vaccine status: Patient reports receiving the 2nd dose of the covid vaccine. Client denies travel out of the [place] in the last 14 days. At this time, the client does not indicate any symptoms associated with coronavirus-19. Ebola Screen: Patient denies travel to an Ebola-affected area in the 21 days before illness onset. Complicating Factors: There are no complicating factors for this patient. Initial Sepsis Screen: Does the patient meet any 2 criteria? No. Patient's initial sepsis screen is negative. Does the patient have a suspected source of infection? Yes: Skin breakdown/wound. Risk Assessment: Do you want to hurt yourself or someone else? Patient reports no desire to harm self or others. Onset of symptoms was June 05, 2022. 18:09 Method Of Arrival: Wheelchair ll1 18:09 Acuity: LEA 3 ll1 Triage Assessment: 18:08 General: Appears uncomfortable, Behavior is calm, cooperative, appropriate for age. ll1 Pain: Complains of pain in left foot Quality of pain is described as aching. Derm: <4 cm laceration L inner foot. Musculoskeletal: Circulation, motion, and sensation intact. Capillary refill < 3 seconds. Historical: - Allergies: 18:08 PENICILLINS; ll1 - PMHx: 18:08 Hypertensive disorder; Diabetes mellitus; ll1 - PSHx: 18:08 None; ll1 - Immunization history:: Last tetanus immunization: unknown. - Social history:: Smoking status: Patient denies any tobacco usage or history of. Screenin:15 [facility] ED Fall Risk Assessment (Adult) History of falling in the last 3 months, em6 including since admission No falls in past 3 months (0 pts) Confusion or Disorientation No (0 pts) Intoxicated or Sedated No (0 pts) Impaired Gait Yes (1 pt) Mobility Assist Device Used No (0 pt) Altered Elimination No (0 pt) Score/Fall Risk Level 0 - 2 = Low Risk Oriented to surroundings, Maintained a safe environment, Educated pt \T\ family on fall prevention, incl call for assistance when getting out of bed, Assessed \T\ reinforced patient's understanding of fall precautions, Provided non-skid footwear, Hourly rounding (assess needs \T\ fall precautionary measures) done, Used ambulatory aids as needed (educated on \T\ assisted with), Used gait belt as appropriate. Abuse screen: Denies threats or abuse. Nutritional screening: No deficits noted. Tuberculosis screening: No symptoms or risk factors identified. Assessment: 19:15 General: Appears in no apparent distress. Behavior is cooperative. Pain: Complains of em6 pain in left foot Pain does not radiate. Pain currently is 8 out of 10 on a pain scale. Quality of pain is described as sharp. Neuro: Level of Consciousness is awake, alert, obeys commands, Oriented to person, place, time, situation. Cardiovascular: Patient's skin is warm and dry. Respiratory: Airway is patent Respiratory effort is even, unlabored, Respiratory pattern is regular, symmetrical. GI: No signs and/or symptoms were reported involving the gastrointestinal system. : No signs and/or symptoms were reported regarding the genitourinary system. EENT: No signs and/or symptoms were reported regarding the EENT system. Derm: No signs and/or symptoms reported regarding the dermatologic system. Musculoskeletal: Circulation, motion, and sensation intact. Capillary refill < 3 seconds, Range of motion: intact in all extremities. Injury Description: Laceration sustained to dorsum of left foot is clean, 2.6 to 7.5 cm long, not bleeding. 20:15 Reassessment: Patient appears in no apparent distress at this time. No changes from em6 previously documented assessment. Patient and/or family updated on plan of care and expected duration. Pain level reassessed. Patient is alert, oriented x 3, equal unlabored respirations, skin warm/dry/pink. 21:10 Reassessment: Patient appears in no apparent distress at this time. No changes from em6 previously documented assessment. Patient and/or family updated on plan of care and expected duration. Pain level reassessed. Patient is alert, oriented x 3, equal unlabored respirations, skin warm/dry/pink. Vital Signs: 18:09 BP 160 / 74; Pulse 82; Resp 16; Temp 98.1; Pulse Ox 97% ; Pain 8/10; ll1 19:15 BP 149 / 68; Pulse 78; Resp 18; Pulse Ox 98% on R/A; em6 20:15 BP 166 / 73; Pulse 77; Resp 18; Pulse Ox 96% on R/A; em6 21:34 BP 156 / 60; Pulse 84; Resp 18; Pulse Ox 98% on R/A; em6 ED Course: 17:32 Patient arrived in ED. am2 17:33 Mimi Sandoval MD is Private Physician. am2 17:45 Dion Smith PA is PHCP. cp 17:45 Dion Moreno MD is Attending Physician. cp 18:11 Triage completed. ll1 18:11 Arm band placed on. ll1 18:49 XRAY Foot LEFT 3 View In Process Unspecified. EDMS 18:58 US Extremity Venous Unilateral Ltd In Process Unspecified. EDMS 18:58 US Lower Extremity Artery Uni Ltd In Process Unspecified. EDMS 19:15 Bed in low position. Call light in reach. Side rails up X 1. Pulse ox on. NIBP on. Warm em6 blanket given. 19:50 Basil Durham, QUINCY is Primary Nurse. as6 21:11 Yonatan Segal MD is Attending Physician. cp 21:13 No provider procedures requiring assistance completed. em6 21:13 Patient did not have IV access during this emergency room visit. intact, bleeding em6 controlled, No redness/swelling at site. Pressure dressing applied. Administered Medications: 19:22 CANCELLED (Physician Discretion): HYDROcodone-acetaminophen 10 mg-325 mg 1 tabs PO once cp 20:25 Drug: morphine 8 mg Route: IM; Site: left deltoid; em6 21:12 Follow up: Response: No adverse reaction; RASS: Alert and Calm (0) em6 20:55 Drug: Bupivacaine (0.5 %) 10 ml {Note: page dion.} Volume: 10 ml; Route: Infiltration; em6 21:12 Follow up: Response: No adverse reaction em6 20:55 Drug: Lidocaine (1 %) 10 ml {Note: administered page dion .} Volume: 5 ml; Route: em6 Infiltration; 21:12 Follow up: Response: No adverse reaction em6 Medication: 21:10 VIS not applicable for this client. em6 Outcome: 21:09 Discharge ordered by . cp 21:35 Discharged to home via wheelchair, with crutches. em6 21:35 Condition: stable 21:35 Discharge instructions given to patient, Instructed on discharge instructions, follow up and referral plans. medication usage, crutch walking, wound care, Demonstrated understanding of instructions, follow-up care, medications, wound care, crutch walking, Prescriptions given X 3. 21:35 Patient left the ED. em6 Signatures: Dispatcher [employer] EDMS Dion Smith PA PA cp Moreno, Amanda am2 Tonny Bowens RN RN ll1 Basil Durham RN RN as6 Denia Taylor RN RN em6 Corrections: (The following items were deleted from the chart) 18:09 18:08 PMHx: History of urinary tract infection; ll1 ll1
--- NOTE | 2022-06-05 21:10 | EDPHYS ---
Physician Documentation [facility] Name: Akshat Sexton Age: 51 yrs Sex: Male : 1970 Arrival Date: 06/05/2022 Time: 17:32 Bed 8 Private MD: Mimi Sandoval K ED Physician Yonatan Segal HPI: 06/05 18:20 This 51 yrs old Male presents to ER via Wheelchair with complaints of Laceration To cp Foot - w/axe, Foot Injury. 18:20 The patient presents with an injury, a laceration. The complaints affect the medial cp aspect above arch of left foot. Context: resulted from ax, must have assistance, from family. Onset: The symptoms/episode began/occurred just prior to arrival. Associated signs and symptoms: The patient has no apparent associated signs or symptoms. Patient reports he was using ax to chop down michelle in yard when he accidently struck left foot. Historical: - Allergies: 18:08 PENICILLINS; ll1 - PMHx: 18:08 Hypertensive disorder; Diabetes mellitus; ll1 - PSHx: 18:08 None; ll1 - Immunization history:: Last tetanus immunization: unknown. - Social history:: Smoking status: Patient denies any tobacco usage or history of. ROS: 18:25 MS/extremity: Positive for injury or acute deformity, laceration, of the left foot, cp Negative for decreased range of motion. 18:25 Eyes: Negative for injury, pain, redness, and discharge. cp 18:25 Constitutional: Negative for body aches, chills, fever, poor PO intake. 18:25 Neck: Negative for pain with movement, pain at rest, stiffness. 18:25 Respiratory: Negative for cough, shortness of breath, wheezing. 18:25 Abdomen/GI: Negative for abdominal pain, nausea, vomiting, and diarrhea. 18:25 Back: Negative for pain at rest, pain with movement. 18:25 Neuro: Negative for altered mental status, headache, numbness, weakness. 18:25 All other systems are negative. Exam: 18:30 Constitutional: The patient appears in no acute distress, alert, awake, non-toxic, well cp developed, well nourished, in obvious pain, uncomfortable. 18:30 Head/Face: Normocephalic, atraumatic. cp 18:30 Eyes: Periorbital structures: appear normal, Conjunctiva: normal, no exudate, no injection, Sclera: no appreciated abnormality, Lids and lashes: appear normal, bilaterally. 18:30 ENT: External ear(s): are unremarkable, Nose: is normal, Mouth: Lips: moist, Oral mucosa: moist. 18:30 Neck: ROM/movement: is normal, is supple, without pain, no range of motions limitations. 18:30 Chest/axilla: Inspection: normal. 18:30 Cardiovascular: Rate: normal, Rhythm: regular, Pulses: weak, left dorsalis pedis. 18:30 Respiratory: the patient does not display signs of respiratory distress, Respirations: normal, no use of accessory muscles, no retractions, labored breathing, is not present, Breath sounds: are clear throughout, no decreased breath sounds, no stridor, no wheezing. 18:30 Abdomen/GI: Exam negative for discomfort, distension, guarding, Inspection: abdomen appears normal. 18:30 Musculoskeletal/extremity: Extremities: noted in the medial aspect above arch of left foot: laceration, pain, swelling, tenderness, toes appear dusky, decreased sensation to light touch noted. 18:30 Neuro: Orientation: to person, place \T\ time. Mentation: is normal. Vital Signs: 18:09 BP 160 / 74; Pulse 82; Resp 16; Temp 98.1; Pulse Ox 97% ; Pain 8/10; ll1 19:15 BP 149 / 68; Pulse 78; Resp 18; Pulse Ox 98% on R/A; em6 20:15 BP 166 / 73; Pulse 77; Resp 18; Pulse Ox 96% on R/A; em6 21:34 BP 156 / 60; Pulse 84; Resp 18; Pulse Ox 98% on R/A; em6 Laceration: 21:07 Wound Repair of 5cm ( 2.0in ) subcutaneous laceration to medial aspect arch of left cp foot. Linear shaped.. Distal neuro/vascular/tendon intact. Anesthesia: Wound infiltrated with 10 mls of Lido/Marcaine. Wound prep: Moderate cleansing by me, Wound irrigation by me. Skin closed with 7 4-0 Prolene using interrupted sutures and sterile technique. Dressed with Bacitracin, 4x4's. Patient tolerated well. MDM: 19:10 Patient medically screened. gabbi 19:30 Differential diagnosis: fracture, open fracture, tendon injury, amputation, simple cp laceration. 21:09 Data reviewed: vital signs, nurses notes, radiologic studies, plain films. 21:09 Test interpretation: by ED physician or midlevel provider: plain radiologic studies. cp Counseling: I had a detailed discussion with the patient and/or guardian regarding: the historical points, exam findings, and any diagnostic results supporting the discharge/admit diagnosis, radiology results, the need for outpatient follow up, a family practitioner, to return to the emergency department if symptoms worsen or persist or if there are any questions or concerns that arise at home. Response to treatment: the patient's symptoms have markedly improved after treatment, Wound cleaned, sutured close and dressed. Pain improved with meds. Will discharge to home for continued monitoring. 06/05 18:13 Order name: US Extremity Venous Unilateral Ltd; Complete Time: 19:50 cp 06/05 19:50 Interpretation: Report reviewed. 06/05 18:13 Order name: Lower Extremity Artery Uni Ltd; Complete Time: 19:50 cp 06/05 19:50 Interpretation: Report reviewed. 06/05 18:13 Order name: XRAY Foot LEFT 3 View; Complete Time: 19:50 cp 06/05 19:24 Order name: Dressing - Wound; Complete Time: 20:25 cp 06/05 19:24 Order name: Gloves, Sterile; Complete Time: 20:25 cp 06/05 19:24 Order name: Setup Suture Tray; Complete Time: 20:25 cp 06/05 19:50 Order name: Wound Care; Complete Time: 20:25 cp 06/05 21:07 Order name: Wound dressing; Complete Time: 21:34 cp 06/05 21:07 Order name: Crutches; Complete Time: 21:34 cp Administered Medications: 19:22 CANCELLED (Physician Discretion): HYDROcodone-acetaminophen 10 mg-325 mg 1 tabs PO once cp 20:25 Drug: morphine 8 mg Route: IM; Site: left deltoid; em6 21:12 Follow up: Response: No adverse reaction; RASS: Alert and Calm (0) em6 20:55 Drug: Bupivacaine (0.5 %) 10 ml {Note: page dion.} Volume: 10 ml; Route: Infiltration; em6 21:12 Follow up: Response: No adverse reaction em6 20:55 Drug: Lidocaine (1 %) 10 ml {Note: administered emilia lee .} Volume: 5 ml; Route: em6 Infiltration; 21:12 Follow up: Response: No adverse reaction em6 Disposition: 22:53 Co-signature as Attending Physician, Yonatan Segal MD. rn Disposition Summary: 06/05/22 21:09 Discharge Ordered Location: Home cp Problem: new cp Symptoms: have improved cp Condition: Stable cp Diagnosis - Laceration without foreign body of foot - left cp Followup: cp - With: Private Physician - When: 10 - 14 days - Reason: Staple/Suture removal Discharge Instructions: - Discharge Summary Sheet cp - Laceration Care, Adult cp Forms: - Medication Reconciliation Form cp - Thank You Letter cp - Antibiotic Education cp - Prescription Opioid Use cp Prescriptions: - Naprosyn 500 mg Oral Tablet - take 1 tablet by ORAL route 2 times per day take with food; 30 tablet; Refills: cp 0, Product Selection Permitted - Tylenol-Codeine #3 300 mg-30 mg Oral - take 2 tablet by ORAL route every 8 hours; 14 tablet; Refills: 0, Product cp Selection Permitted - Clindamycin HCl 300 mg Oral Capsule - take 1 capsule by ORAL route every 6 hours for 10 days; 40 capsule; Refills: 0, cp Product Selection Permitted Signatures: Dispatcher [employer] EDDion Aguirre MD MD cha Nieto, Roman, MD MD rn Page, Corey, PA PA cp Tonny Bowens RN RN ll1 Denia Taylor RN RN em6 Corrections: (The following items were deleted from the chart) 18:09 18:08 PMHx: History of urinary tract infection; sis forrest1 19:22 18:13 HYDROcodone-acetaminophen 10 mg-325 mg 1 tabs PO once ordered. cp cp 06/06 17:28 17:26 MS/extremity: Positive for injury or acute deformity, laceration, of the left cp foot, cp
[2022-06-05 21:55] VITALS: TEMP 98.1
[2022-06-05 21:59] VITALS: BP 156/60; O2SAT 98
== END 2022-06-05 21:35 | disposition home or self-care (01) ==
LOC: ER 17:31
PROC: 0JQR0ZZ Repair Left Foot Subcutaneous Tissue and Fascia, Open Approach (ICD-10-PCS; principal; 2022-06-05)
DX: S91.312A Laceration without foreign body, left foot, initial encounter (principal)
CPT/HCPCS: 93926; 93971; 96372; 99284; J2001